=== PATIENT | male | born 1950 | race Caucasian/White ===

== ENCOUNTER 2024-01-14 09:38 | Emergency (ER) | payer MEDICARE, SELFPAY ==
[2024-01-14 09:57] VITALS: BP 146/69
[2024-01-14 10:11] VITALS: BMI 29.1
--- NOTE | 2024-01-14 10:12 | ED.GENMED ---
History of Present Illness
General
Chief Complaint: Abnormal Lab Value
Source: patient
Exam Limitations: none
Time Seen by Provider: 01/14/24 10:11
Nursing documentation reviewed up to this point in time: agreed with
History of Present Illness
History of Present Illness:
73 y/o M with h/o HTN, CAD, kidney cancer s/p nephrectomy
has had some ongoing vague symptoms for the past 2 monhts: muscle aches, fatigue, sometimes night sweats
he has had his tsh checked and other labs and has hda some hyperkalemia
used to be on metoprolol but was switched to losartan
he had blood work 3 days ago and k was 5.6
he went to see his PCP today because he thought he shoul dhave a lyme test
and the PCP did an EKG and was worried hhe had peaked t waves so she sent him in after speakign with patient's beater head dr flores who recommended him coming in for eval
urinating normally
no excessive K intake otherwise
no vomiting, focal weakness, headache, cp, sob
he would still fernando a lyme test.
no chest pain at rest or exertional
Past History
Past History
ED Past Medical History: Cancer (Renal) and IDDM
ED Past Surgical History: Orthopedic and Urological
Patient has exhibited threatening behavior?: No
PSI?: No
Social History
Tobacco: Non-smoker
Alcohol: None
Drug: None
Review of Systems
Review of Systems
Allergies reviewed?: Yes
All Other Systems: Not applicable
Phy Exam
Physical Exam
Physical Exam:
GENERAL: Alert , in no apparent distress, very well-appearing,
EYE: pupils equal and reactive
NECK: Supple
ENT: o/p clr, mmm.
CARDIAC: Regular rate and rhythm .
LUNGS: Clear breath sounds bilaterally, no acute respiratory distress, no wheezes/rales/rhonchi
ABDOMEN: Soft, without focal tenderness, no r/g, no cvat, normal bowel sounds
NEUROLOGICAL: Alert and oriented, no focal neuro deficits
SKIN: Warm and dry, skin intact.
MUSCULOSKELETAL: No edema, well perfused. neg senia's sign moving all joints
PSYCH: Normal and appropriate interaction.
Course
Orders/Labs/Results
Orders:
Orders
01/14/24 10:01
Electrocardiogram (*1) Urgent
Reason for Study: Abnormal EKG
01/14/24 10:02
EKG- Treatment ONCE
01/14/24 10:24
TSH Reflex To Free T4 Urgent
01/14/24 10:30
CPK [Creatine Phosphokinase] Urgent
Complete Blood Count/With Diff Urgent
Comprehensive Metabolic Panel Urgent
Lyme Progressive Urgent
Magnesium Urgent
NT-proBNP Urgent
Troponin I Urgent
01/14/24 10:55
Add On- LAB Urgent
Tests Added?: TSH reflex to free T4
01/14/24 11:11
0.9% Sodium Chloride 1000 ml [Nss] 1,000 ml IV BOLUS
Abnormal Lab Results
01/14/24
10:30
RBC 4.38 L 10^6/uL
(4.70-6.10)
Hgb 12.5 L g/dL
(13.0-18.0)
Hct 37.4 L %
(39.0-52.0)
MPV 10.6 H fL
(7.4-10.4)
Absolute Monos (auto) 0.8 H 10^3/uL
(0.1-0.6)
Monocytes % 10.9 H %
(1.7-9.3)
Potassium 5.2 H mmol/L
(3.5-5.1)
BUN 42 H mg/dl
(9-20)
Glucose 294 H mg/dl
(70-99)
Creatine Kinase 203 H U/L
(55-170)
01/14/24 10:30
01/14/24 10:30
Vital Signs
Initial and Last Documented VS:
Initial Vital Signs
Temp Pulse Resp BP Pulse Ox
98.0 F 71 18 146/69 98
01/14/24 09:57 01/14/24 09:57 01/14/24 09:57 01/14/24 09:57 01/14/24 09:57
Last Documented Vital Signs
Temp Pulse Resp BP Pulse Ox
98.0 F 69 11 139/66 96
01/14/24 09:57 01/14/24 12:15 01/14/24 12:15 01/14/24 12:00 01/14/24 12:15
MDM/Problems Addressed
Differential Diagnosis Includes:
hyperkalemia, fatigue, rhabdo, lyme, hypothyroid
MDM/Problems Addressed:
pt is 73 y/o M
pcp sent him here for hyper k on outpatient labs;
he has some generalized fatigue sypmtoms but ongoing for weeks, no cp. but feels wiped with activity
it looks like his ekg is subtly different t wave inv avL; slightly peaked looking t waves, not much off from basleine
but he looks well;
k here is 5.2 (was 5.6 thursday)
looks a little dry/prerenal (bun 40, cr 1.3) and a hyperglycemic; gave pt IVF
he has been on losartan and has been having borderline hyperk for a while;
recommend switching to amloidpine
i spoke with dr. conway (cards) on for bonnie who spoke to bonnie who did agree
he has close f/u in 4 days.
*Critical Care Note
Total Time (30-74mins, 75-104mins- exclusive of procedures): Not Applicable
ED Attending Note
-
Portions of this chart may have been created with voice recognition software.� Occasional wrong word or��sound alike� substitutions may have occurred due to the inherent limitations of voice recognition software.
Discharge Plan
Departure
Patient Disposition: Home (Routine Discharge)
Date of Disposition: 01/14/24
Time of Disposition: 12:20
Patient with high blood pressure during this ER visit?: Yes
Discharge Problem:
Dehydration, Hyperkalemia
Instructions: Dehydration, Adult (DC), Low-potassium diet, High Blood Sugar, Adult ED
Prescriptions:
New
amlodipine 5 mg tablet
5 mg PO DAILY Qty: 30 0RF
No Action
cyanocobalamin (vitamin B-12) 1,000 MCG tablet
3,000 mcg PO DAILY
ferrous sulfate 325 mg (65 mg iron) Tablet
325 mg PO DAILY Qty: 0
insulin lispro protamin-lispro [Humalog Mix 75-25 KwikPen] 100 UNIT/ML insulin pen
30 unit SQ BID@0800,2000
metformin 1,000 MG tablet extended release 24hr
1,000 mg PO BID@0800,1700
budesonide-formoterol [Symbicort] 1 PUFF HFA aerosol inhaler
2 puff inhalation DAILY
Eliquis 5 MG tablet
5 mg PO BID
Fasenra 30 MG/ML syringe
30 mg SQ [id number]
losartan 50 mg Tablet
50 mg PO DAILY
rosuvastatin [Crestor] 40 mg Tablet
40 mg PO DAILY
aspirin 81 mg Capsule
81 mg PO DAILY
Mounjaro 5 mg/0.5 mL Pen Injector
5 mg SC QWEEK
calcium carbonate 500 mg calcium (1,250 mg) tablet
600 mg PO DAILY
magnesium oxide 500 mg tablet
1,000 mg PO DAILY
Referrals:
Ale Posey DO [Family Provider] -
Activity Restrictions/Additional Instructions:
The beater head when she to stop the losartan and switch to 5 mg of amlodipine once a day. You apparently have a follow-up appointment in a couple of days with Dr. Flores.
In the meantime avoid foods heavy in potassium like bananas, avocados, green leafy vegetables.
Drink plenty of fluids. You appeared mildly dehydrated today. Your sugar was also up and that can cause symptoms of not feeling well. We tested you for Lyme disease, you will only get a phone call if it is positive.
Return for any concerns like exertional chest pain, shortness of breath, passing out, vomiting etc.
we will call you if your thyroid needs adjustment.
Interventions
Interventions:
*Risk Screen - Suicide Last Done: 01/14/24 10:47
*General Assessment Last Done: 01/14/24 10:59
*Neglect/Abuse Screening Last Done: 01/14/24 10:47
ED- Fall Risk Assessment Last Done: 01/14/24 10:47
*ED COVID-19 Vaccine History Last Done: 01/14/24 10:49
*Nursing Disposition Last Done: 01/14/24 12:25
Discharge Date and Time
Discharge Date/Time: 01/14/24 12:30
Print Language: GERMAN
[2024-01-14 10:39] LABS: % Basophils 0.3 % (0-2); % Immature Granulocytes 0.4 % (0-0.5); % Lymphocytes 21.5 % (20.5-51.1); % Monocytes 10.9 % (1.7-9.3); % Neutrophils 66.9 % (42.2-75.2); Absolute Lymphocytes 1.5 10^3/uL (1.2-3.4); Absolute Monocytes 0.8 10^3/uL (0.1-0.6); Absolute Neutrophils 4.8 10^3/uL (1.4-6.5); Hematocrit 37.4 % (39.0-52.0); Hemoglobin 12.5 g/dL (13.0-18.0); Mean Corp Hgb Conc. 33.4 g/dL (33.0-37.0); Mean Corpuscular Hgb 28.5 pg (27.0-31.0); Mean Corpuscular Volume 85.4 fL (80.0-94.0); Mean Platelet Volume 10.6 fL (7.4-10.4); Nucleated Red Blood Cells % 0 % (-); Platelet Count 193 10^3/uL (130-400); Red Blood Cell Count 4.38 10^6/uL (4.70-6.10); Red Cell Dist. Width 13.5 % (11.5-14.5); White Blood Cell Count 7.1 10^3/uL (4.8-10.8)
[2024-01-14 10:52] LABS: Blood Urea Nitrogen 42 mg/dl (9-20); Estimated Creatinine Clearance 57 ml/min; Glucose 294 mg/dl (70-99)
[2024-01-14 10:53] LABS: ALT (SGPT) 18 U/L (0-50); AST (SGOT) 24 U/L (17-59); Albumin 4.1 g/dl (3.5-5.0); Alkaline Phosphatase 109 U/L (38-126); Calcium 9.1 mg/dl (8.4-10.2); Carbon Dioxide 25 mmol/L (22-30); Chloride 102 mmol/L (98-107); Creatine Phosphokinase 203 U/L (55-170); Magnesium 1.8 mg/dl (1.6-2.3); Potassium 5.2 mmol/L (3.5-5.1); Sodium 136 mmol/L (135-145); Total Bilirubin 0.8 mg/dl (0.2-1.3); Total Protein 6.4 g/dl (6.3-8.2); eGFR > 60.00
[2024-01-14 11:00] VITALS: BP 125/70
[2024-01-14 11:04] LABS: NT-proBNP 531 pg/ml; Troponin I 0.017 ng/ml
[2024-01-14] MEDS: NSS 1000 IV (11:25)
[2024-01-14 12:00] VITALS: BP 139/66
[2024-01-14 14:36] LABS: Lyme Antibody Screen, EIA Negative (Negative)
[2024-01-14 17:59] LABS: TSH Reflex To Free T4 1.67 uIU/ml (0.47-4.68)
== END 2024-01-14 12:30 | disposition home or self-care (01) ==
LOC: EMR 09:38
PROVIDERS: Physician Assistant; EMERGENCY PHYSICIAN Emergency Medicine; FAMILY PHYSICIAN Family Medicine
DX: E86.0 Dehydration (principal); E87.5 Hyperkalemia; I10 Essential (primary) hypertension; I25.10 Atherosclerotic heart disease of native coronary artery without angina pectoris; E11.65 Type 2 diabetes mellitus with hyperglycemia; Z85.528 Personal history of other malignant neoplasm of kidney; Z90.5 Acquired absence of kidney
CPT/HCPCS: 99283; 96360; 80053; 82550; 83735; 83880; 84443; 84484; 85025; 86618; 93005

== ENCOUNTER 2024-09-22 10:32 | Emergency (ER) | payer MEDICARE, SELFPAY ==
[2024-09-22 10:43] VITALS: BP 135/80
--- NOTE | 2024-09-22 11:29 | ED.GENMED ---
History of Present Illness
General
Chief Complaint: Fall
Time Seen by Provider: 09/22/24 11:15
History of Present Illness
History of Present Illness:
74-year-old male with history of atrial flutter on Eliquis presents to the emergency department for evaluation of multiple injuries after a ground-level fall. He was attempting to push a heavy wheelbarrow when he lost his balance and fell to the
left side. Did not strike his head on the ground. Additionally injured the left upper extremity. No LOC. Denies distal paresthesias
Past History
Past History
ED Past Medical History: Cancer (Renal) and IDDM
ED Past Surgical History: Orthopedic and Urological
Patient has exhibited threatening behavior?: No
PSI?: No
Social History
Tobacco: Non-smoker
Alcohol: None
Drug: None
Review of Systems
Review of Systems
Allergies reviewed?: Yes
All Other Systems: ROS reviewed and negative except as documented in HPI and ROS
Phy Exam
Physical Exam
Physical Exam:
GEN: Well appearing, NAD, WDWN
HEENT: Minor abrasion to the left lateral eyebrow, no cephalohematoma, oral mucosa moist, no scleral icterus, no nasal congestion
Cardiac: Regular rate
Lung: No respiratory distress, no tachypnea
MSK: No gross deformity or injuries. Limited range of motion of the left shoulder secondary to pain. Passive range of motion also limited due to pain. Left elbow and left wrist range of motion are normal with minimal pain
Skin: Good color, no pallor or jaundice, no rashes
Neuro: AO x3; CN II-XII grossly intact. BUE strength 5/5 in all giraldo, sensation intact and symmetric. BLE strength 5/5 in all giraldo, sensation intact and symmetric
Psych: Calm, cooperative
Course
Orders/Labs/Results
Orders:
Orders
09/22/24 10:47
CT Head W/o Iv Contrast Urgent
Comment:
Reason For Exam: fall/LAC
CR Elbow - Left Min 3 Views Urgent
Comment:
Reason For Exam: fall/pain
CR Shoulder, Trauma - Left Urgent
Comment:
Reason For Exam: fall/pain
CR Wrist - Left Min 3 Views Urgent
Comment:
Reason For Exam: fall/pain
Vital Signs
Initial and Last Documented VS:
Initial Vital Signs
Temp Pulse Resp BP Pulse Ox
97.9 F 77 18 135/80 95
09/22/24 10:43 09/22/24 10:43 09/22/24 10:43 09/22/24 10:43 09/22/24 10:43
Last Documented Vital Signs
Temp Pulse Resp BP Pulse Ox
97.9 F 77 18 135/80 95
09/22/24 10:43 09/22/24 10:43 09/22/24 10:43 09/22/24 10:43 09/22/24 10:43
MDM/Problems Addressed
MDM/Problems Addressed:
Imaging grossly unremarkable. Left shoulder range of motion limited by pain, unable to rule in/rule out rotator cuff injury. Recommend NSAIDs and ice, sling provided for short-term use, further supportive care and orthopedic follow-up
recommendations discussed
*Critical Care Note
Total Time (30-74mins, 75-104mins- exclusive of procedures): Not Applicable
ED Attending Note
-
Portions of this chart may have been created with voice recognition software.� Occasional wrong word or��sound alike� substitutions may have occurred due to the inherent limitations of voice recognition software.
Discharge Plan
Departure
Patient Disposition: Home (Routine Discharge)
Date of Disposition: 09/22/24
Time of Disposition: 11:32
Patient with high blood pressure during this ER visit?: No
Discharge Problem:
Closed head injury, Sprain of left shoulder
Instructions: Shoulder Sprain ED
Prescriptions:
No Action
cyanocobalamin (vitamin B-12) 1,000 MCG tablet
3,000 mcg PO DAILY
ferrous sulfate 325 mg (65 mg iron) Tablet
325 mg PO DAILY Qty: 0
insulin lispro protamin-lispro [Humalog Mix 75-25 KwikPen] 100 UNIT/ML insulin pen
30 unit SQ BID@0800,2000
metformin 1,000 MG tablet extended release 24hr
1,000 mg PO BID@0800,1700
budesonide-formoterol [Symbicort] 1 PUFF HFA aerosol inhaler
2 puff inhalation DAILY
Eliquis 5 MG tablet
5 mg PO BID
Fasenra 30 MG/ML syringe
30 mg SQ [id number]
losartan 50 mg Tablet
50 mg PO DAILY
rosuvastatin [Crestor] 40 mg Tablet
40 mg PO DAILY
aspirin 81 mg Capsule
81 mg PO DAILY
Mounjaro 5 mg/0.5 mL Pen Injector
5 mg SC QWEEK
calcium carbonate 500 mg calcium (1,250 mg) tablet
600 mg PO DAILY
magnesium oxide 500 mg tablet
1,000 mg PO DAILY
amlodipine 5 mg tablet
5 mg PO DAILY Qty: 30 0RF
Referrals:
Ale Posey DO [Family Provider] -
Soren Mancini MD [Active] - Follow up in 5-7 days
Activity Restrictions/Additional Instructions:
Ibuprofen 600mg every 6-8 hours for pain control
Ice often
Remove the sling for at least 1 hour per day (and for sleeping) to reduce joint stiffness
Follow up with orthopedics in 5-7 days if symptoms persist
Interventions
Interventions:
*Risk Screen - Suicide Last Done: 09/22/24 11:50
*General Assessment Last Done: 09/22/24 10:46
*Neglect/Abuse Screening Last Done: 09/22/24 11:50
*ED- Fall Risk Assessment Last Done: 09/22/24 11:50
*ED COVID-19 Vaccine History Last Done: 09/22/24 11:50
*Nursing Disposition Last Done: 09/22/24 11:53
ED-Musculoskeletal Assessment Last Done: 09/22/24 11:52
ED- Neurological Assessment Last Done: 09/22/24 11:50
ED-Skin Assessment Last Done: 09/22/24 11:50
Discharge Date and Time
Discharge Date/Time: 09/22/24 11:54
Print Language: LATVIAN
== END 2024-09-22 11:54 | disposition home or self-care (01) ==
LOC: EMR 10:32
PROVIDERS: EMERGENCY PHYSICIAN Emergency Medicine; FAMILY PHYSICIAN Family Medicine
DX: S09.90XA Unspecified injury of head, initial encounter (principal); S43.402A Unspecified sprain of left shoulder joint, initial encounter; W01.0XXA Fall on same level from slipping, tripping and stumbling without subsequent striking against object, initial encounter; I48.92 Unspecified atrial flutter; E11.9 Type 2 diabetes mellitus without complications; Z79.01 Long term (current) use of anticoagulants; Z79.4 Long term (current) use of insulin; Z85.528 Personal history of other malignant neoplasm of kidney
CPT/HCPCS: 99284; 70450; 73030; 73080; 73110

== ENCOUNTER → 2024-10-18 07:11 | Outpatient (REF) | payer MEDICARE, SELFPAY | LOC: HWRCS 07:11 | PROVIDERS: ATTENDING PHYSICIAN Student in an Organized Health Care Education/Training Program; FAMILY PHYSICIAN Family Medicine | DX: R06.09 Other forms of dyspnea (principal) | CPT/HCPCS: 78452; 93017; A9500; J2785 ==

== ENCOUNTER → 2024-10-21 07:56 | Outpatient (REF) | payer MEDICARE, SELFPAY ==
--- NOTE | 2024-10-21 14:58 | CARDSERVLU ---
Echocardiogram with Lumason completed after protocol screening completed. Allergies verified.
Patent IV site: _rt hand___
IV site flushed with 0.9% NaCl pre and post administration.
Diluted bolus method utilized to enhance visualization of ventricular ovalle.
Total volume given: __3.0 mL
Patient tolerated all procedures well without complications.
== END ==
LOC: RCS 07:56
PROVIDERS: ATTENDING PHYSICIAN Student in an Organized Health Care Education/Training Program; FAMILY PHYSICIAN Family Medicine
DX: R06.09 Other forms of dyspnea (principal); R94.39 Abnormal result of other cardiovascular function study; I10 Essential (primary) hypertension; E78.5 Hyperlipidemia, unspecified; I34.0 Nonrheumatic mitral (valve) insufficiency; I25.10 Atherosclerotic heart disease of native coronary artery without angina pectoris; J44.9 Chronic obstructive pulmonary disease, unspecified; R00.0 Tachycardia, unspecified; I25.118 Atherosclerotic heart disease of native coronary artery with other forms of angina pectoris
CPT/HCPCS: 93005; 93306; Q9950

== ENCOUNTER → 2024-10-27 09:55 | Outpatient (REF) | payer MEDICARE, SELFPAY ==
[2024-10-27 11:34] LABS: % Basophils 0.3 % (0-2); % Immature Granulocytes 0.3 % (0-0.5); % Lymphocytes 20.2 % (20.5-51.1); % Monocytes 9.5 % (1.7-9.3); % Neutrophils 69.7 % (42.2-75.2); Absolute Lymphocytes 1.8 10^3/uL (1.2-3.4); Absolute Monocytes 0.8 10^3/uL (0.1-0.6); Absolute Neutrophils 6.1 10^3/uL (1.4-6.5); Hemoglobin 13.6 g/dL (13.0-18.0); Mean Corp Hgb Conc. 31.6 g/dL (33.0-37.0); Mean Corpuscular Hgb 28.6 pg (27.0-31.0); Mean Corpuscular Volume 90.3 fL (80.0-94.0); Mean Platelet Volume 11.7 fL (7.4-10.4); Nucleated Red Blood Cells % 0 % (-); Platelet Count 203 10^3/uL (130-400); Red Blood Cell Count 4.76 10^6/uL (4.70-6.10); Red Cell Dist. Width 13.6 % (11.5-14.5); White Blood Cell Count 8.7 10^3/uL (4.8-10.8)
[2024-10-27 13:12] LABS: ALT (SGPT) 24 U/L (0-50); AST (SGOT) 24 U/L (17-59); Albumin 4.8 g/dl (3.5-5.0); Alkaline Phosphatase 153 U/L (38-126); Blood Urea Nitrogen 35 mg/dl (9-20); Calcium 9.6 mg/dl (8.4-10.2); Carbon Dioxide 26 mmol/L (22-30); Chloride 106 mmol/L (98-107); Glucose 176 mg/dl (70-99); Potassium 5.8 mmol/L (3.5-5.1); Sodium 143 mmol/L (135-145); Total Bilirubin 0.6 mg/dl (0.2-1.3); Total Protein 7.5 g/dl (6.3-8.2); eGFR > 60.00
== END ==
LOC: SDSPAT 09:55
PROVIDERS: ATTENDING PHYSICIAN Student in an Organized Health Care Education/Training Program; FAMILY PHYSICIAN Family Medicine
DX: I48.0 Paroxysmal atrial fibrillation (principal); R06.09 Other forms of dyspnea; I34.0 Nonrheumatic mitral (valve) insufficiency
CPT/HCPCS: 36415; 80053; 85025; 93005

== ENCOUNTER 2024-10-28 09:22 | Day surgery (SDC) | payer MEDICARE, SELFPAY ==
[2024-10-27 13:43] VITALS: BMI 28.7
[2024-10-28] VITALS (14 sets, daily range): BP systolic 134–158; BP diastolic 75–111; BMI 28.6
[2024-10-28 10:07] LABS: Glucose - Point of Care 181 mg/dl (70-99)
[2024-10-28] MEDS: NSS 279 ML IV (10:08)
[2024-10-28 10:25] LABS: ALT (SGPT) 24 U/L (0-50); AST (SGOT) 24 U/L (17-59); Albumin 4.5 g/dl (3.5-5.0); Alkaline Phosphatase 153 U/L (38-126); Blood Urea Nitrogen 37 mg/dl (9-20); Calcium 9.2 mg/dl (8.4-10.2); Carbon Dioxide 23 mmol/L (22-30); Chloride 108 mmol/L (98-107); Estimated Creatinine Clearance 56 ml/min; Glucose 194 mg/dl (70-99); Potassium 5.3 mmol/L (3.5-5.1); Sodium 142 mmol/L (135-145); Total Bilirubin 0.7 mg/dl (0.2-1.3); Total Protein 7.2 g/dl (6.3-8.2); eGFR > 60.00
[2024-10-28] MEDS: TOPROL XL 25 MG PO (13:12)
--- NOTE | 2024-10-28 17:50 | ITS.CL.PN ---
Doubler Operator - Procedure Note
Procedure
Procedure Note:
CARDIAC CATHETERIZATION REPORT
Date of Procedure: 10/28/2024
Referring: Dr. Otis Chawla MD, PhD
Indication: shortness of breath, new cardiomyopathy, newly positive stress test
PROCEDURE(S)
1. left heart catheterization
2. coronary angiography
3. bypass graft angiography
ACCESS: 6F left radial artery (closure: radial band)
CATHETERS
1. 6F DIA
2. 6F AL1 (best for SVG-OM1-PDA)
3. 6F AR2 (best for RCA)
2. 6F JL4
MODERATE SEDATION: 45 minutes of moderate sedation was utilized. An independent medical lab technician was present to assist with and help manage the patient's level of consciousness and physiologic status.
HEMODYNAMIC DATA
LV 150/15 (EDP 20) mmHg
AO 159/71 (mean 105) mmHg
CORONARY ANGIOGRAPHY
Dominance: Right
LM: Large, normal
LAD: Large vessel giving rise to a moderate caliber diagonal branch before being occluded in the mid vessel with competitive flow visualized from the NAVARRETE. There is stable mild-moderate disease in the proximal LAD and diagonal branch.
LCx: Moderate caliber vessel giving rise to a small OM1, small OM2, small OM3, and small LPL branch. The OM1 is totally occluded ostially and supplied via the SVG. There is a patent stent in the mid circumflex. The remainder the vessel has mild
disease.
RCA: Large vessel giving rise to a small RPDA, and 2 moderate caliber RPL branches. There is a patent stent in the distal RCA. There is stable mild to moderate nonobstructive disease throughout the remainder of the vessel largely unchanged from
prior angiography. The RPDA is supplied via the SVG and there is evidence of competitive flow on quechan RCA injection.
BYPASS GRAFT ANGIOGRAPHY:
NAVARRETE-LAD: the NAVARRETE is taken as a pedicle and forms an anastomosis with the mid-LAD. The NAVARRETE is widely patent at its touchdown.
[id number]: patent, forming serial anastomoses to the OM1 and RPDA. There is mild ostial disease at the anastomosis to the OM1 and mild nonobstructive disease in the RPDA.
RADIATION: dose 782 mGy; DAP 47 Gy*cm2; fluoroscopy time 15.2 min
CONCLUSIONS
1. Stable coronary artery disease status post bypass and PCI as described with no obstructive lesion to explain the patient's newly reduced ejection fraction with inferior wall motion abnormalities and corresponding infarct on nuclear stress test.
2. Mildly elevated LV filling pressure with no aortic stenosis.
RECOMMENDATIONS
1. Initiate GDMT for HFrEF with metoprolol and valsartan with plan for eventual transition to Entresto and addition of dapagliflozin. Lasix 10 mg will also be started to improve filling pressure and promote potassium excretion given patient's
baseline borderline hyperkalemia. Labs in 1 week.
Copy to: Otis Chawla MD, PhD (screen printer helper); Ale Posey (PCP)
Signed: Otis Chawla MD, PhD
== END 2024-10-28 16:21 | disposition home or self-care (01) ==
LOC: CATH 09:22
PROVIDERS: Nurse Practitioner Adult Health; ATTENDING PHYSICIAN Student in an Organized Health Care Education/Training Program; FAMILY PHYSICIAN Family Medicine
DX: I25.10 Atherosclerotic heart disease of native coronary artery without angina pectoris (principal); R06.09 Other forms of dyspnea; R06.02 Shortness of breath; E11.9 Type 2 diabetes mellitus without complications; I11.0 Hypertensive heart disease with heart failure; I50.22 Chronic systolic (congestive) heart failure; K21.9 Gastro-esophageal reflux disease without esophagitis; E87.5 Hyperkalemia; E78.5 Hyperlipidemia, unspecified; E89.0 Postprocedural hypothyroidism; J44.89 Other specified chronic obstructive pulmonary disease; G47.33 Obstructive sleep apnea (adult) (pediatric); I42.9 Cardiomyopathy, unspecified; I48.0 Paroxysmal atrial fibrillation; K58.9 Irritable bowel syndrome, unspecified; Z79.01 Long term (current) use of anticoagulants; Z79.4 Long term (current) use of insulin; Z79.51 Long term (current) use of inhaled steroids; Z79.84 Long term (current) use of oral hypoglycemic drugs; Z79.890 Hormone replacement therapy; Z79.899 Other long term (current) drug therapy; Z85.47 Personal history of malignant neoplasm of testis; Z85.528 Personal history of other malignant neoplasm of kidney; Z86.0100 Personal history of colon polyps, unspecified; Z87.891 Personal history of nicotine dependence; Z88.2 Allergy status to sulfonamides; Z88.5 Allergy status to narcotic agent; Z90.5 Acquired absence of kidney; Z90.79 Acquired absence of other genital organ(s); Z95.1 Presence of aortocoronary bypass graft; Z95.5 Presence of coronary angioplasty implant and graft
CPT/HCPCS: 99152; 99153; 80053; 82962; 93459; C1894; Q9967

== ENCOUNTER → 2025-01-24 08:19 | Outpatient (REF) | payer MEDICARE, SELFPAY | LOC: HWRCS 08:19 | PROVIDERS: ATTENDING PHYSICIAN Nurse Practitioner; FAMILY PHYSICIAN Family Medicine | DX: I25.10 Atherosclerotic heart disease of native coronary artery without angina pectoris (principal); I42.0 Dilated cardiomyopathy; I10 Essential (primary) hypertension | CPT/HCPCS: 93306 ==

== ENCOUNTER → 2025-05-02 14:47 | Outpatient (REF) | payer MEDICARE, SELFPAY | LOC: HWRAD 14:47 | PROVIDERS: ATTENDING PHYSICIAN Specialist; FAMILY PHYSICIAN Family Medicine | DX: N18.32 Chronic kidney disease, stage 3b (principal) | CPT/HCPCS: 76770 ==